=== PATIENT | female | born 1960 | race Caucasian/White ===

== ENCOUNTER → 2019-07-09 | Outpatient (CLI) | payer SELFPAY | PROVIDERS: Family Provider Family Medicine; Visit Provider Podiatrist Foot & Ankle Surgery | DX: Z46.89 Encounter for fitting and adjustment of other specified devices (principal); S86.319D Strain of muscle(s) and tendon(s) of peroneal muscle group at lower leg level, unspecified leg, subsequent encounter; X58.XXXD Exposure to other specified factors, subsequent encounter | CPT/HCPCS: L3030 ==

== ENCOUNTER 2020-05-15 07:43 | Outpatient (CLI) | payer OTHER, SELFPAY ==
--- NOTE | 2020-05-15 07:52 | CT_ITS ---
WS: [id number] CT scan of the chest with IV contrast, additional two-dimensional coronal and sagittal reconstruction was performed. 05/15/2020 Clinical Data: XIPHOID PAIN Comparison: None. DLP: 905.[address] scans at [facility] use at least one of these dose optimization techniques: automat ed exposure control; mA and/or kV adjustment per patient size (includes targeted exams where dose is matched to clinical indication); or iterative reconstruction. Findings: No nodules, masses or effusions are seen. No pneumonia or pneumothorax is seen. The heart size is nor mal with no pericardial effusion. The pulmonary arterial system and thoracic aorta demonstrate no abn ormalities or dilatations. There is no axillary or significant mediastinal adenopathy. The bones of t he thorax show only degenerative change of the thoracic vertebral bodies. Specifically the region of the xiphoid is unremarkable. The upper abdomen shows clips in the gallbladder fossa from a cholecystectomy. Otherwise, the upper a bdomen is unremarkable. CT/CT chest w con* [id number] Impression: Negative CT scan of the chest with IV contrast.
[2020-05-15] MEDS: iohexol 300 mg/mL 100 mL Btl IV (08:24)
== END 2020-05-15 07:44 | disposition home or self-care (01) ==
LOC: RADWPI 07:50
PROVIDERS: PCP Family Medicine; Visit Provider Registered Nurse
DX: R07.89 Other chest pain (principal); R29.898 Other symptoms and signs involving the musculoskeletal system
CPT/HCPCS: 71260; Q9967

== ENCOUNTER → 2020-10-13 16:03 | Outpatient (BNVA) | payer OTHER, SELFPAY | PROVIDERS: PCP Family Medicine; Referring Provider Dermatology; Visit Provider Podiatrist Foot & Ankle Surgery | DX: M25.571 Pain in right ankle and joints of right foot (principal) | CPT/HCPCS: 73610; 73630 ==

== ENCOUNTER 2020-11-26 12:54 | Outpatient (CLI) | payer OTHER, SELFPAY ==
--- NOTE | 2020-11-26 13:00 | MR_ITS ---
WS: [id number] MRI RIGHT ANKLE AND RIGHT FOOT NONCONTRAST TECHNIQUE: Sagittal proton density, sagittal STIR, axial proton density, axial T1, axial T2 fat sat, coronal proton density, coronal proton density fat sat, coronal T2 fat sat. CLINICAL INFORMATION: pain COMPARISON: None. FINDINGS: Mild degenerative arthritis at the ankle mortise. Hypertrophic spurring along the lateral malleolus. Mild degenerative subchondral cystic change along the undersurface of the lateral malleolus. Normal t alar dome. No evidence of avascular necrosis. Distal Achilles is normal in appearance. Split tear of the peroneal brevis with tenosynovitis along the peroneal tendon sheath. Marked tendinopathy involvin g the peroneal longus and brevis tendons with edema and increased signal abnormality. Palpable marker along the anterior lateral foot overlying the extensor digitorum longus which appears normal. Extensor compartment tendons appear normal. Normal flexor compartment tendons. Normal bone marrow signal in the talus and calcaneus. Normal talocalcaneal articulation. Normal camilo avicular articulation. Plantar aponeurosis appears normal. Tiny plantar calcaneal spur. Extensor comp artment tendons appear normal. Normal flexor compartment tendons. Metatarsals are normal in appearance. Mild degenerative arthritis IP joints. MR/MR ankle RT wo con* [id number] IMPRESSION: 1. Diffuse thickening and increased signal abnormality involving the peroneal tendons consistent with tendinosis involving the peroneal longus and brevis. Th is is at the level of the lateral malleolus and peroneal tubercle. Diffuse surr ounding edema and fluid consistent with tenosynovitis. 2. Peroneal brevis split tear. 3. Extensor and flexor compartment tendons are normal in appearance. 4. Distal Achilles appears normal. 5. Tiny plantar calcaneal spur. Normal plantar aponeurosis.
--- NOTE | 2020-11-26 13:45 | MR_ITS ---
WS: [id number] MRI RIGHT ANKLE AND RIGHT FOOT NONCONTRAST TECHNIQUE: Sagittal proton density, sagittal STIR, axial proton density, axial T1, axial T2 fat sat, coronal proton density, coronal proton density fat sat, coronal T2 fat sat. CLINICAL INFORMATION: pain COMPARISON: None. FINDINGS: Mild degenerative arthritis at the ankle mortise. Hypertrophic spurring along the lateral malleolus. Mild degenerative subchondral cystic change along the undersurface of the lateral malleolus. Normal t alar dome. No evidence of avascular necrosis. Distal Achilles is normal in appearance. Split tear of the peroneal brevis with tenosynovitis along the peroneal tendon sheath. Marked tendinopathy involvin g the peroneal longus and brevis tendons with edema and increased signal abnormality. Palpable marker along the anterior lateral foot overlying the extensor digitorum longus which appears normal. Extensor compartment tendons appear normal. Normal flexor compartment tendons. Normal bone marrow signal in the talus and calcaneus. Normal talocalcaneal articulation. Normal camilo avicular articulation. Plantar aponeurosis appears normal. Tiny plantar calcaneal spur. Extensor comp artment tendons appear normal. Normal flexor compartment tendons. Metatarsals are normal in appearance. Mild degenerative arthritis IP joints. MR/MR foot RT wo con* [id number] IMPRESSION: 1. Diffuse thickening and increased signal abnormality involving the peroneal tendons consistent with tendinosis involving the peroneal longus and brevis. Th is is at the level of the lateral malleolus and peroneal tubercle. Diffuse surr ounding edema and fluid consistent with tenosynovitis. 2. Peroneal brevis split tear. 3. Extensor and flexor compartment tendons are normal in appearance. 4. Distal Achilles appears normal. 5. Tiny plantar calcaneal spur. Normal plantar aponeurosis.
== END 2020-11-26 12:55 | disposition home or self-care (01) ==
LOC: RADSHAW 12:58
PROVIDERS: Visit Provider Podiatrist Foot & Ankle Surgery
DX: M76.70 Peroneal tendinitis, unspecified leg (principal); S86.311A Strain of muscle(s) and tendon(s) of peroneal muscle group at lower leg level, right leg, initial encounter; M77.31 Calcaneal spur, right foot; X58.XXXA Exposure to other specified factors, initial encounter
CPT/HCPCS: 73718; 73721

== ENCOUNTER → 2021-05-17 14:53 | Outpatient (BNVA) | payer OTHER, SELFPAY | PROVIDERS: Visit Provider Obstetrics & Gynecology | DX: N95.0 Postmenopausal bleeding (principal) | CPT/HCPCS: 88305 ==

== ENCOUNTER → 2021-06-07 14:03 | Outpatient (BNVA) | payer OTHER, SELFPAY | PROVIDERS: Visit Provider Obstetrics & Gynecology | DX: N93.9 Abnormal uterine and vaginal bleeding, unspecified (principal); N95.0 Postmenopausal bleeding | CPT/HCPCS: 84443; 85025 ==

== ENCOUNTER → 2021-10-27 13:56 | Outpatient (BNVA) | payer OTHER, SELFPAY | PROVIDERS: Visit Provider Podiatrist Foot & Ankle Surgery | DX: M67.88 Other specified disorders of synovium and tendon, other site (principal); M76.71 Peroneal tendinitis, right leg | CPT/HCPCS: 20550; 99213; 99214 ==

== ENCOUNTER 2021-10-27 15:25 | Outpatient (CLI) | payer OTHER, SELFPAY | END 2021-10-27 15:26 | disposition home or self-care (01) | LOC: SPT 15:39 | PROVIDERS: Visit Provider Podiatrist Foot & Ankle Surgery | DX: Z46.89 Encounter for fitting and adjustment of other specified devices (principal); M79.671 Pain in right foot | CPT/HCPCS: 97760; 99214; L4397 ==

== ENCOUNTER 2021-11-02 11:26 | Day surgery (SDC) | payer OTHER, SELFPAY ==
[2021-11-01 14:59] VITALS: BMI 30.9
[2021-11-02] VITALS (9 sets, daily range): BP systolic 114–179; BP diastolic 50–94; PULSE 66–80; RESP 12–18; TEMP 36.2–36.8; O2SAT 92–97
[2021-11-02] MEDS: sodium chloride 0.9% 1,000 ML 30 ML IV (11:54)
[2021-11-02] MEDS: ketorolac 30 mg/mL INJ IVP (11:59)
[2021-11-02] MEDS: scopolamine 1.5 Patch 1 PATCH TRANSDERMA (12:01)
--- NOTE | 2021-11-02 12:59 | ANES.PREANE2 ---
Pre-Anesthetic Assessment Height/Weight: Height 1.63 m Weight 81.647 kg Temp Pulse Resp BP Pulse Ox 97.7 F 80 16 179/94 97 11/02/21 11:46 11/02/21 11:46 11/02/21 11:46 11/02/21 11:46 11/02/21 11:46 Preop Diagnosis: pmb Operation Date: 11/02/21 13:10 Proposed Procedures p Hysteroscopy w/ Myosure 13683/90406/64406/post men bleed N95.0(Not Applicable) - Isidra Goss MD Familial anesthetic complications: Patient had 3 days of PONV in past Was Beta Robby taken within 24 hours: N/A Was Clonidine taken within 24 hours: N/A Last intake: Intake Last Liquid Date 11/01/21 Last Liquid Time 19:30 Last Solid Date 11/01/21 Last Solid Time 19:30 Social No alcohol and No tobacco Exam alert, oriented x 3, clear to auscultation bilaterally and regular rate & rhythm Airway Submandibular: within normal limits Cervical ROM: within normal limits Mallampati: Class I Dentition: full History/ROS No significant complaints Pulmonary None reported CV/HEM Anemia (iron deficiency anemia ) None reported PMB Hepatic None reported GI None reported Metabolic None reported Musc/skel None reported Neuropsych None reported Anesthetic Plan ASA status: 1 Anesthesia: Anesthesia Evaluation and General Other: We discussed risk and benefits of general anesthesia including PONV, sore throat (sometimes severe), corneal abrasion, positioning and peripheral nerve injuries, life threatening allergic reaction, post operative ICU admission requiring prolonged intubation, stroke, heart attack, , and rare incidences of recall. Patient consents to proceed with general anesthesia. Plan TIVA for PONV. Scopalamine pre op. Intra op antiemetics. Risk of > 500 ml blood loss (7ml/kg in children): No Medications/Allergies Home Medications Medication Instructions Recorded Confirmed Last Taken Type custom functional foot orthoses #1 ea 11/27/20 11/01/21 Unknown Rx left and right cholecalciferol (vitamin D3) 10 10 mcg PO DAILY 05/17/21 11/02/21 11/01/21 History mcg (400 unit) capsule zinc 50 mg tablet 50 mg PO DAILY 05/17/21 11/02/21 11/01/21 History night splint #1 ea 10/27/21 11/01/21 Unknown Rx sole supports #1 ea 10/27/21 11/01/21 Unknown Rx progesterone micronized 100 mg 100 mg PO QAM 11/01/21 11/02/21 11/01/21 History capsule vitamin K2 100 mcg capsule 600 mcg PO DAILY 11/01/21 11/02/21 11/01/21 History Allergies Allergy/AdvReac Type Severity Reaction Status Date / Time codeine Allergy Mild ADR-Vomitin Verified 11/02/21 11:37 g Current Medications Generic Name Dose Route Start Last Admin Trade Name Freq PRN Reason Stop Dose Admin Sodium Chloride 1,000 mls @ 30 mls/hr 11/02/21 11:45 11/02/21 11:54 Sodium Chloride 0.9% IV 11/03/21 11:44 30 mls/hr .Q24H [facility] Administration PFSH Anesthesia Surgical History History of foot surgery Hx of section Hx of cholecystectomy Hx of laparoscopy Hx of nasal septoplasty Family History Mother Diabetes Hypertension Stroke Father Diabetes Denies family history of Colon cancer Ovarian cancer Heart disease Breast cancer Uterine cancer Thyroid disease Social History Alcohol intake: current Alcohol intake frequency: few times a month Alcohol type: beer Data Anesthesia Cardiac Studies: No Data to Display
[2021-11-02 13:14] LABS: Basophils % 0.7 %; Eosinophils # 0.1 10^3/uL (0.0-0.8); Eosinophils % 1.5 %; Hemoglobin 9.3 g/dL (11.5-15.3); Lymphocytes # 2.2 10^3/uL (0.8-4.8); Lymphocytes % 40.3 %; Mean Corpuscular HGB Conc 32.1 g/dL (30.0-36.0); Mean Corpuscular Hemoglobin 26.2 pg (28.0-34.0); Mean Corpuscular Volume 81.7 fl (81-99); Monocytes # 0.7 10^3/uL (0.2-0.9); Neutrophils # 2.42 10^3/uL (1.8-7.7); Neutrophils % 44.3 %; Nucleated Red Blood Cells % 0 %; Platelet Count 278 10^3/cmm (130-400); Red Blood Count 3.55 10^6/uL (4.1-5.3); Red Cell Distribution Width 15.9 % (12.1-15.1); White Blood Count 5.5 10^3/uL (4.0-10.0)
--- NOTE | 2021-11-02 14:01 | W.PM.OPSUD ---
Surgery/Procedure H&P Update DATE OF PROCEDURE: November 02, 2021 DATE H&P PERFORMED: 11/01/21 H&P UPDATE INFORMATION: I have reviewed H&P completed within last 30 days, I have examined patient prior to procedure and No changes to prior documentation CHANGES TO PREVIOUS DOCUMENTATION: her hemoglobin is up to 9.3 from 6.8 PREOP DIAGNOSIS: pmb PLANNED PROCEDURE: Operation Date: 11/02/21 13:10 Proposed Procedures p Hysteroscopy w/ Myosure [id number]/67809/post men bleed N95.0(Not Applicable) - Isidra Goss MD
--- NOTE | 2021-11-02 15:02 | PM.OP ---
Operative Report Date of procedure: November 02, 2021 Pre-op diagnosis: Preop Diagnosis pmb Post-op diagnosis: same Post-op findings: 11 week sized uterus filled with blood clot Procedure done: hysteroscopy, dilation and curettage with myosure Specimens removed/disposition: endometrial curettings to pathology Surgeon: Isidra Goss Anesthesia: General Estimated blood loss (mL): 5 IV fluids (mL): 600 Complications: none Findings: 11 week sized uterus filled with blood clot Procedure: The patient was taken to the operating room where monitored anesthesia was administered and to be adequate. She was prepped and draped in the normal sterile fashion in the dorsal lithotomy position in [facility]. A weighted speculum was placed into the vagina and the anterior lip of the cervix grasped with a single-tooth tenaculum. The uterus was sounded to 11 cm. The cervix was dilated to 16 Icelandic. The hysteroscope was advanced into the endometrial cavity. There was a huge blood clot visualized. This was washed out with the hysteroscopy fluid. Three large masses were visualized on the posterior uterus. The MyoSure device was placed into the endometrial cavity and activated samples were taken of the 3 masses . Pictures were taken. All instruments were removed. The patient tolerated the procedure well. Sponge lap and needle counts were correct x3. She was taken to the recovery room in stable condition.
--- NOTE | 2021-11-02 15:09 | PM.DCS ---
Discharge Providers Date of Admission: 11/02/21 Date of Discharge: November 02, 2021 Attending Provider at Admission: Dr. Goss Attending Provider at Discharge: Isidra Goss MD Diagnoses at Discharge Discharge Diagnosis (1) PMB (postmenopausal bleeding): Status: Acute (2) Iron deficiency anemia: Status: Acute Reason for Visit Reason for Visit: post flavia bleeding N95.0/19219/80404/93357 Hospital Course Hospital Course The patient was admitted for surgery. She did well postoperatively and was ready for discharge Discharge Data Studies Completed and Pending Pending at discharge Category Date Time Status ES surgery / GI images Routine Exams 11/02/21 14:05 Taken Pathology: Surgical [PTH] Routine Pth 11/02/21 14:56 Ordered Laboratory Results WBC 5.5 10^3/uL (4.0-10.0) 11/02/21 11:56 RBC 3.55 10^6/uL (4.1-5.3) L 11/02/21 11:56 Hgb 9.3 g/dL (11.5-15.3) L 11/02/21 11:56 Hct 29.0 % (37.0-47.0) L 11/02/21 11:56 MCV 81.7 fl (81-99) 11/02/21 11:56 MCH 26.2 pg (28.0-34.0) L 11/02/21 11:56 MCHC 32.1 g/dL (30.0-36.0) 11/02/21 11:56 RDW 15.9 % (12.1-15.1) H 11/02/21 11:56 Plt Count 278 10^3/cmm (130-400) 11/02/21 11:56 MPV 11.0 fL (7.4-10.4) H 11/02/21 11:56 Neut % (Auto) 44.3 % 11/02/21 11:56 Lymph % (Auto) 40.3 % 11/02/21 11:56 Faulkner % (Auto) 13.0 % 11/02/21 11:56 Eos % (Auto) 1.5 % 11/02/21 11:56 Baso % (Auto) 0.7 % 11/02/21 11:56 Neut # (Auto) 2.42 10^3/uL (1.8-7.7) 11/02/21 11:56 Lymph # (Auto) 2.2 10^3/uL (0.8-4.8) 11/02/21 11:56 Faulkner # (Auto) 0.7 10^3/uL (0.2-0.9) 11/02/21 11:56 Eos # (Auto) 0.1 10^3/uL (0.0-0.8) 11/02/21 11:56 Baso # (Auto) 0.0 10^3/uL (0.0-0.1) 11/02/21 11:56 Nucleated RBC % (auto) 0 % 11/02/21 11:56 Nucleated RBCs # 0.0 /100WBC 11/02/21 11:56 Vitals Last Vital Signs Temp 97.7 F 11/02/21 11:46 Pulse 80 11/02/21 11:46 Resp 16 11/02/21 11:46 BP 179/94 11/02/21 11:46 Pulse Ox 97 11/02/21 11:46 Discharge Plan Discharge Patient Disposition: Home Condition: Stable Prescriptions: Continued cholecalciferol (vitamin D3) 10 mcg (400 unit) capsule 10 mcg PO DAILY 0RF zinc 50 mg tablet 50 mg PO DAILY 0RF (DME) custom functional foot orthoses left and right See Rx Instructions .Route .MEDSUPPLY Qty: 1 0RF Rx Instructions: Deep heel cup, lateral flang, lateral rearfoot post. JG&P. progesterone micronized 100 mg capsule 100 mg PO QAM 0RF Rx Instructions: off 7 days; repeat cycle (DME) night splint See Rx Instructions .Route .MEDSUPPLY Qty: 1 0RF Rx Instructions: As directed (DME) sole supports See Rx Instructions .Route .MEDSUPPLY Qty: 1 0RF Rx Instructions: As directed vitamin K2 100 mcg Capsule 600 mcg PO DAILY 0RF Discharge Orders: Discharge Order (Routine); Ordered 11/02/21 Ordered By: Isidra Goss Discharge Attestations Time Spent in Discharge Care*: less than 30 min Quality Metrics Clinical Quality Measures [ No reported AMI, CVA or VTE this stay] Coding Level of Care Code Acute Chg FW DC note Diagnoses PMB (postmenopausal bleeding) N95.0 Iron deficiency anemia D50.9
--- NOTE | 2021-11-02 17:48 | ANE.PACU2 ---
Inpatient post-anesthesia follow up: Airway intact: Yes Vital signs: Temperature 98.2 F Pulse Rate 69 Respiratory Rate 18 Blood Pressure 118/62 Pulse Oximetry 94 Oxygen Delivery Me thod Room Air Oxygen Flow Rate Fraction of Inspir ed Oxygen Hydration adequate: Yes Nausea and vomiting: No Pain level: 1 Mental status: Baseline
== END 2021-11-02 16:10 | disposition home or self-care (01) ==
PROVIDERS: Visit Provider Obstetrics & Gynecology
PROC: 0UDB8ZZ Extraction of Endometrium, Via Natural or Artificial Opening Endoscopic (ICD-10-PCS; CPT 58558; principal; 2021-11-02 13:00)
DX: N95.0 Postmenopausal bleeding (principal); D50.9 Iron deficiency anemia, unspecified
CPT/HCPCS: 58558; 36415; 85025; 88305; J0690; J1100; J1200; J1885; J2405; J2704; J3010; J7030

== ENCOUNTER → 2022-01-19 10:43 | Outpatient (BNVA) | payer OTHER, SELFPAY | PROVIDERS: Visit Provider Podiatrist Foot & Ankle Surgery | DX: M79.671 Pain in right foot (principal); M67.88 Other specified disorders of synovium and tendon, other site; M76.71 Peroneal tendinitis, right leg; M92.61 Juvenile osteochondrosis of tarsus, right ankle | CPT/HCPCS: 99214 ==

== ENCOUNTER → 2022-03-21 10:12 | Outpatient (BNVA) | payer OTHER, SELFPAY | PROVIDERS: Visit Provider Podiatrist Foot & Ankle Surgery | DX: M67.88 Other specified disorders of synovium and tendon, other site (principal); M76.71 Peroneal tendinitis, right leg; M92.61 Juvenile osteochondrosis of tarsus, right ankle | CPT/HCPCS: 99214 ==

== ENCOUNTER 2022-04-26 08:42 | Outpatient (CLI) | payer OTHER, SELFPAY ==
--- NOTE | 2022-04-26 08:45 | MR_ITS ---
WS: [id number] MRI RIGHT ANKLE without CONTRAST. COMPARISON: Prior MRI 11/26/2020 Multiplanar, multisequence imaging is performed without contrast. No significant thickening or enlargement of the Achilles tendon. New increased T2 signal in the inser tion site of the Achilles tendon. Consistent with a very tiny insertional site tear. No retraction. M inimal retrocalcaneal bursitis. No fluid surrounding the distal Achilles tendinopathy or peritendinit is. Marrow edema in the distal calcaneus at the Achilles insertion site. Increased T2 signal fluid in the peroneal tendon sheath. Again noted is a split tear of the peroneal brevis tendon near the peroneal tubercle. There is similar in appearance to the prior MRI. No improv ement. Increase fluid in the tendon sheath appears slightly increased. There is no edema within the p eroneal tubercle. Small amount of subchondral cystic changes noted within the distal fibula. Extensor and flexor tendon sheath are otherwise negative. Small calcaneal spur. No evidence for acute plantar fasciitis. MR/MR ankle RT wo con* [id number] IMPRESSION: 1. Again noted is tenosynovitis surrounding the peroneal tendon sheath. Fluid within the peroneal tendon sheath appears slightly progressed as compared to . Unchanged split tear of the peroneus brevis near the peroneal tubercle . 2. New small insertion site tear Achilles tendon with a small amount of marrow edema in the adjacent posterior calcaneus. No full-thickness tear or retractio n. 3. Minimal retrocalcaneal bursitis.
== END 2022-04-26 08:43 | disposition home or self-care (01) ==
LOC: RAD 08:44
PROVIDERS: PCP Nurse Practitioner; Visit Provider Podiatrist Foot & Ankle Surgery
DX: M67.88 Other specified disorders of synovium and tendon, other site (principal); M71.571 Other bursitis, not elsewhere classified, right ankle and foot; S93.491A Sprain of other ligament of right ankle, initial encounter; S86.011A Strain of right Achilles tendon, initial encounter; X58.XXXA Exposure to other specified factors, initial encounter
CPT/HCPCS: 73721

== ENCOUNTER → 2022-05-17 14:45 | Outpatient (BNVA) | payer OTHER, SELFPAY | PROVIDERS: PCP Nurse Practitioner; Visit Provider Podiatrist Foot & Ankle Surgery | DX: M67.88 Other specified disorders of synovium and tendon, other site (principal); M92.61 Juvenile osteochondrosis of tarsus, right ankle; M76.71 Peroneal tendinitis, right leg | CPT/HCPCS: 20550; 99214 ==

== ENCOUNTER 2022-08-05 08:00 | Day surgery (SDC) | payer OTHER, SELFPAY ==
[2022-08-04 09:53] VITALS: BMI 30.9
[2022-08-05 08:14] VITALS: BP 173/82; PULSE 72; RESP 16; TEMP 36.4; O2SAT 96
[2022-08-05] MEDS: sodium chloride 0.9% 1,000 ML 30 ML IV (08:25)
[2022-08-05] MEDS: gabapentin 300 mg Capsule PO (08:26)
[2022-08-05] MEDS: scopolamine 1.5 Patch 1 PATCH TRANSDERMA (08:27)
--- NOTE | 2022-08-05 08:45 | ANES.PREANE2 ---
Pre-Anesthetic Assessment Height/Weight: Height 1.6 m Weight 79.379 kg Temp Pulse Resp BP Pulse Ox O2 Del Method 97.5 F L 72 16 173/82 96 08/05/22 08:14 08/05/22 08:14 08/05/22 08:14 08/05/22 08:14 08/05/22 08:14 08/05/22 08:14 Preop Diagnosis: Peroneal and achilles tear, haglaunds deformity all right. Operation Date: 08/05/22 09:40 Proposed Procedures p Peroneal tendon repair, Achilles tendon repair and calcaneal exostectomy all right lower extremity 66293,38246, 04053,M92.61,S86.311,M92.61(Right) - Esteban Sewell DPM s Exostectomy(Right) - Esteban Sewell DPM Familial anesthetic complications: None Was Beta Robby taken within 24 hours: N/A Was Clonidine taken within 24 hours: N/A Last intake: Intake Last Liquid Date 08/04/22 Last Liquid Time 00:00 Last Solid Date 08/04/22 Last Solid Time 17:30 Social No alcohol and No tobacco Exam alert, oriented x 3, clear to auscultation bilaterally and regular rate & rhythm Airway Dentition: false CV/HEM Hypertension Metabolic Diabetes Mellitus, Hyperlipidemia and Thyroid Disease Anesthetic Plan ASA status: 3 Anesthesia: General Risk of > 500 ml blood loss (7ml/kg in children): No Medications/Allergies Home Medications Medication Instructions Recorded Confirmed Last Taken Type custom functional foot orthoses #1 ea 11/27/20 05/17/22 Unknown Rx left and right night splint #1 ea 10/27/21 05/17/22 Unknown Rx sole supports #1 ea 10/27/21 05/17/22 Unknown Rx Low Profile Orthotics- Graphite #1 ea 01/20/22 05/17/22 Unknown Rx Open heel counter or low heel #1 laurie 02/21/22 05/17/22 Unknown Rx counter orthopedic shoes Allergies Allergy/AdvReac Type Severity Reaction Status Date / Time codeine Allergy Mild ADR-Vomitin Verified 05/17/22 14:57 g Current Medications Generic Name Dose Route Start Last Admin Trade Name Freq PRN Reason Stop Dose Admin Sodium Chloride 1,000 mls @ 30 mls/hr 08/05/22 08:15 08/05/22 08:25 Sodium Chloride 0.9% IV 08/06/22 08:14 30 mls/hr .Q24H [facility] Administration PFSH Anesthesia Surgical History History of foot surgery Hx of section Hx of cholecystectomy Hx of laparoscopy Hx of nasal septoplasty Family History Mother Diabetes Hypertension Stroke Father Diabetes Denies family history of Colon cancer Ovarian cancer Heart disease Breast cancer Uterine cancer Thyroid disease Social History Smoking and tobacco status: never smoked Alcohol intake: current Alcohol intake frequency: few times a month Alcohol type: beer Data Anesthesia Cardiac Studies: No Data to Display
--- NOTE | 2022-08-05 08:47 | ANES.PREANE2 ---
Pre-Anesthetic Assessment Height/Weight: Height 1.6 m Weight 79.379 kg Temp Pulse Resp BP Pulse Ox O2 Del Method 97.5 F L 72 16 173/82 96 08/05/22 08:14 08/05/22 08:14 08/05/22 08:14 08/05/22 08:14 08/05/22 08:14 08/05/22 08:14 Preop Diagnosis: Peroneal and achilles tear, haglaunds deformity all right. Operation Date: 08/05/22 09:40 Proposed Procedures p Peroneal tendon repair, Achilles tendon repair and calcaneal exostectomy all right lower extremity 73644,08377, 18180,M92.61,S86.311,M92.61(Right) - Esteban Sewell DPM s Exostectomy(Right) - Esteban Sewell DPM Familial anesthetic complications: PONV Was Beta Robby taken within 24 hours: N/A Was Clonidine taken within 24 hours: N/A Last intake: Intake Last Liquid Date 08/04/22 Last Liquid Time 00:00 Last Solid Date 08/04/22 Last Solid Time 17:30 Social No alcohol and No tobacco Exam alert, oriented x 3, clear to auscultation bilaterally and regular rate & rhythm Airway Mallampati: Class I Dentition: full CV/HEM Anemia Anesthetic Plan ASA status: 2 Anesthesia: General Risk of > 500 ml blood loss (7ml/kg in children): No Medications/Allergies Home Medications Medication Instructions Recorded Confirmed Last Taken Type custom functional foot orthoses #1 ea 11/27/20 05/17/22 Unknown Rx left and right night splint #1 ea 10/27/21 05/17/22 Unknown Rx sole supports #1 ea 10/27/21 05/17/22 Unknown Rx Low Profile Orthotics- Graphite #1 ea 01/20/22 05/17/22 Unknown Rx Open heel counter or low heel #1 laurie 02/21/22 05/17/22 Unknown Rx counter orthopedic shoes Allergies Allergy/AdvReac Type Severity Reaction Status Date / Time codeine Allergy Mild ADR-Vomitin Verified 05/17/22 14:57 g Current Medications Generic Name Dose Route Start Last Admin Trade Name Freq PRN Reason Stop Dose Admin Sodium Chloride 1,000 mls @ 30 mls/hr 08/05/22 08:15 08/05/22 08:25 Sodium Chloride 0.9% IV 08/06/22 08:14 30 mls/hr .Q24H [facility] Administration PFSH Anesthesia Surgical History History of foot surgery Hx of section Hx of cholecystectomy Hx of laparoscopy Hx of nasal septoplasty Family History Mother Diabetes Hypertension Stroke Father Diabetes Denies family history of Colon cancer Ovarian cancer Heart disease Breast cancer Uterine cancer Thyroid disease Social History Smoking and tobacco status: never smoked Alcohol intake: current Alcohol intake frequency: few times a month Alcohol type: beer Data Anesthesia Cardiac Studies: No Data to Display
--- NOTE | 2022-08-05 10:25 | W.PM.OPSUD ---
Surgery/Procedure H&P Update DATE OF PROCEDURE: August 05, 2022 DATE H&P PERFORMED: 08/05/22 CHANGES TO PREVIOUS DOCUMENTATION: none PREOP DIAGNOSIS: Peroneal and achilles tear, haglaunds deformity all right. PLANNED PROCEDURE: Operation Date: 08/05/22 09:40 Proposed Procedures p Peroneal tendon repair, Achilles tendon repair and calcaneal exostectomy all right lower extremity 72503,05354, 33363,M92.61,S86.311,M92.61(Right) - Esteban Sewell DPM s Exostectomy(Right) - Esteban Sewell DPM
--- NOTE | 2022-08-05 10:25 | PM.OPSURHP ---
Providers/Chief Complaint Primary Care Provider: MARVIN Cardenas Chief Complaint: surgery History of Present Illness Vandana Rivas is a 62 year old female presenting to the clinic for follow of her right Achilles tendon and go over MRI Results. Cortisone injection right peroneal tendons administered on 10/27/2021 and #2 Cortisone Injection on 01/19/22. She locates the pain at the Achilles Tendon. Pain is most serve after periods of rest or after being on her feet for long periods of time. She rates the pain a 6/10.? Has pain at the heel and shoots up? her leg. Patient had a ball that developed at the back of her right knee with her daily stretches and she had to stop the daily stretching due to the pain that shoots up her right leg.? Review of Systems General: Reports: 10 or more systems reviewed and unremarkable except in HPI and below Const: Denies: fever(s) or chills Eyes: Denies: change in vision Card: Denies: chest pain or palpitations Resp: Denies: dyspnea or productive cough GI: Denies: abdominal pain, nausea or vomiting : Denies: flank pain Musc: Reports: extremity pain Skin/Breast: Denies: rash Neuro: Denies: numbness in extremities, sensory changes or frequent falls Psych: Denies: suicidal ideation Sang/Lymph: Denies: easy bruising Medications/Allergies Home Medications Medication Instructions Recorded Confirmed Last Taken Type custom functional foot orthoses #1 ea 11/27/20 05/17/22 Unknown Rx left and right night splint #1 ea 10/27/21 05/17/22 Unknown Rx sole supports #1 ea 10/27/21 05/17/22 Unknown Rx Low Profile Orthotics- Graphite #1 ea 01/20/22 05/17/22 Unknown Rx Open heel counter or low heel #1 ea 02/21/22 05/17/22 Unknown Rx counter orthopedic shoes Allergies Allergy/AdvReac Type Severity Reaction Status Date / Time codeine Allergy Mild ADR-Vomitin Verified 05/17/22 14:57 g PFSH PFSH: Surgical History History of foot surgery Hx of section Hx of cholecystectomy Hx of laparoscopy Hx of nasal septoplasty Family History Mother Diabetes Hypertension Stroke Father Diabetes Denies family history of Colon cancer Ovarian cancer Heart disease Breast cancer Uterine cancer Thyroid disease Social History Smoking and tobacco status: never smoked Alcohol intake: current Alcohol intake frequency: few times a month Alcohol type: beer Vital Signs Vitals Signs: Last Vital Signs Temp 97.5 F L 08/05/22 08:14 Pulse 72 08/05/22 08:14 Resp 16 08/05/22 08:14 BP 173/82 08/05/22 08:14 Pulse Ox 96 08/05/22 08:14 O2 Del Method 08/05/22 08:14 Weight: Weight last 48 hrs Weight 175 lb Physical Exam Narrative: EXAM NARRATIVE: Patient is alert and oriented ?3 and in no acute distress.? The following is a focused bilateral lower extremity exam. VASCULAR: Dorsalis pedis and posterior tibial arteries palpable +2.? Capillary refill time less than 3 seconds to the distal hallux bilaterally. Calf is supple and nontender proximally and distally.? No pedal edema appreciated.? Pedal hair growth present. NEUROLOGICAL: Epicritic and protopathic sensations grossly intact to the lower extremities.? +2 Achilles tendon reflex noted bilaterally.? Negative Tinel sign upon percussion of lower extremity nerves. DERMATOLOGICAL: Lower extremity skin is well-hydrated, normal texture and turgor.? There are no open sores or lesions noted to the lower extremities.? No erythema or ecchymosis present to the bilateral legs and feet. MUSCULOSKELETAL: Pain to palpation along the course of the peroneal tendons right ankle.? Pain with resistance against eversion of the right ankle along the course of the peroneal tendons.? No subluxation appreciated on exam.? Muscle strength 5 out of 5 in all 3 cardinal planes to the right foot and ankle.? Tenderness noted assertion of right Achilles tendon.? No palpable dell at the watershed, no pain at the right Achilles watershed zone.? Ankle joint dorsiflexion 5 degrees beyond neutral to the right. Osseous prominence most painful and most palpable at the posterior superior lateral aspect of the right calcaneal tuberosity. CARDIOVASCULAR: S1, S2, normal rate, normal rhythm. Dorsalis pedis and posterior tibial arteries palpable. LUNGS: Clear to auscltation, no use of acessory muscles, no crackles or wheezes. A&P Assessment and plan (1) Peroneal tendon tear: Qualifiers: Encounter type: subsequent encounter Laterality: left Qualified Code(s): S86.312D - Strain of muscle(s) and tendon(s) of peroneal muscle group at lower leg level, left leg, subsequent encounter (2) Achilles tendinosis of right lower extremity: (3) Peroneal tendinitis, right leg: (4) Right ankle pain: (5) Helio's deformity of right heel: Plan Patient examined and evaluated, findings and treatment options were discussed with patient at length.? Patient is requesting a cortisone injection to the right peroneal tendons with hopes of temporary relief.? Ultimately she is wishing to discuss surgical intervention.? States that the pain at her right peroneal tendons and Achilles is debilitating, this prevents her from enjoying everyday activities, has pain on a daily basis.? Reviewed MRI findings shows tenosynovitis of the peroneal tendons and split longitudinal tear of the peroneal brevis at the right lower extremity this is at the level of the peroneal tubercle.? There is an insertional tear of the Achilles tendon with a small amount of marrow edema.? There is retrocalcaneal bursitis also present.? Discussed surgical approach and recovery times both risks and benefits.? I reviewed at length with the patient, the risks, potential complications, benefits, alternatives, expectations, and typical outcomes associated with the surgery. The risks and potential complications were explained in detail, including but not limited to infection, wound dehiscence or soft tissue complications, bleeding and hematoma, chronic edema, neuritis or nerve damage producing numbness or chronic pain, CRPS, failure to relieve pain or worsening pain, thick / painful / unsightly scar, limited motion / stiffness, malposition, delayed union, malunion, or nonunion, fracture, reaction to implants, anesthetic complications, venous thromboembolism, and deformity recurrence.? I discussed the notion of no regrets with the patient as it pertains to complications and outcomes. Risk for Achilles rupture, risk for subluxation of peroneal tendons, risk for elongation of Achilles tendon and calcaneal gait. The patient seemed to understand the nature of the proposed care and required convalescence. They asked appropriate questions, answered to their satisfaction. They are aware no guarantees can be made as to a satisfactory outcome and they understand there may be other possible unforeseen complications or outcomes not listed here that will be treated accordingly if they arise. There were no written or implied guarantees given to the patient. They gave informed consent to proceed. Plan on Helio's resection, primary Achilles repair and peroneal tendon repair all right lower extremity. Right Helio's resection, primary Achilles repair and peroneal tendon repair. Peroneal tendon repair to be done under general anesthetic in supine position on the gurney Helio's resection and Achilles repair to be positioned prone on the OR bed Planning on 2.5 hours. Would appreciate popliteal block right lower extremity per anesthesia preoperatively. Coding Level of Care Code Acute Code for Chg Fwd Diagnoses Peroneal tendon tear S86.312D Encounter type: subsequent encounter Laterality: left Achilles tendinosis of right lower extremity M67.88 Peroneal tendinitis, right leg M76.71 Right ankle pain M25.571 Helio's deformity of right heel M92.61
[2022-08-05] MEDS: ceFAZolin 2,000 MG in sodium chloride 0.9% (plus) 50 ML 100 MG IV (10:44)
--- NOTE | 2022-08-05 10:46 | ANES.PROC ---
Anesthesia Procedures Procedure/Date: 08/05/22 Nerve Block ^: Nerve Block 1: Main Anesthesia: general anesthesia Time Out Performed: Yes Consent: requested by attending/covering physician, from patient, risks and benefits reviewed and patient agrees to proceed Nerve block location: popliteal (R) Anesthesia monitors applied: pulse oximetry, EKG, BP cuff and oxygen Nerve block position: supine Anesthetic Used: ropivicaine 0.5% (30 ml) and with decadron (4 mg) Ultrasound used to: recognize landmarks Nerve Stimulator Used?: No Interscalene/Femoral BLK: 4 stimuplex 21 g needle used for position and inplane approach, visualize local anesthetic spread and no vascular puncture identified Injection: neg aspiration of heme Patient Tolerated Procedure: well Complications: none
[2022-08-05 12:30] VITALS: BP 152/75; PULSE 92; RESP 17; TEMP 36.1; O2SAT 93
[2022-08-05 12:35] VITALS: BP 140/69; PULSE 95; RESP 19; O2SAT 92
[2022-08-05 12:40] VITALS: BP 143/81; PULSE 91; RESP 20; O2SAT 93
[2022-08-05 12:50] VITALS: BP 139/80; PULSE 90; RESP 18; O2SAT 94
--- NOTE | 2022-08-05 12:52 | P.OP_ITS ---
Operative Report Date of procedure: August 05, 2022 Pre-op diagnosis: Right peroneal brevis tendon tear. Right Achilles tendon tear. Right Helio's deformity. Post-op diagnosis: Right peroneal brevis tendon tear. Right Achilles tendon tear. Right Helio's deformity. Post-op findings: Split longitudinal tear of the right peroneal brevis near the level of the peroneal tubercle. Longitudinal tearing, mucoid degeneration and thickening of the right Achilles tendon at its insertion. Right Helio's deformity. Procedure done: Peroneal tendon repair, Achilles tendon repair and calcaneal exostectomy all right lower extremity. CPT codes 47203,47352, 40733 Implants: Arthrex Achilles speed bridge, 4-0 Monocryl, 3-0 Vicryl, 4-0 Vicryl, 4-0 nylon Surgeon: Esteban Sewell D.P.M. Heavy Truck Mechanic: Angely Evans Estimated blood loss: 5 62 IV fluids: None Urine output: None Complications: None Findings: Split longitudinal tear of the right peroneal brevis near the level of the peroneal tubercle. Longitudinal tearing, mucoid degeneration and thickening of the right Achilles tendon at its insertion. Right Helio's deformity. Brief History: Patient examined and evaluated, findings and treatment options were discussed with patient at length.? Patient is requesting a cortisone injection to the right peroneal tendons with hopes of temporary relief.? Ultimately she is wishing to discuss surgical intervention.? States that the pain at her right peroneal tendons and Achilles is debilitating, this prevents her from enjoying everyday activities, has pain on a daily basis.? Reviewed MRI findings shows tenosynovitis of the peroneal tendons and split longitudinal tear of the peroneal brevis at the right lower extremity this is at the level of the peroneal tubercle.? There is an insertional tear of the Achilles tendon with a small amount of marrow edema.? There is retrocalcaneal bursitis also present.? Discussed surgical approach and recovery times both risks and benefits.? I reviewed at length with the patient, the risks, potential complications, benefits, alternatives, expectations, and typical outcomes associated with the surgery. The risks and potential complications were explained in detail, including but not limited to infection, wound dehiscence or soft tissue complications, bleeding and hematoma, chronic edema, neuritis or nerve damage producing numbness or chronic pain, CRPS, failure to relieve pain or worsening pain, thick / painful / unsightly scar, limited motion / stiffness, malposition, delayed union, malunion, or nonunion, fracture, reaction to implants, anesthetic complications, venous thromboembolism, and deformity recurrence.? I discussed the notion of no regrets with the patient as it pertains to complications and outcomes.? Risk for Achilles rupture, risk for subluxation of peroneal tendons, risk for elongation of Achilles tendon and calcaneal gait.? The patient seemed to understand the nature of the proposed care and required convalescence. They asked appropriate questions, answered to their satisfaction. They are aware no guarantees can be made as to a satisfactory outcome and they understand there may be other possible unforeseen complications or outcomes not listed here that will be treated accordingly if they arise. There were no written or implied guarantees given to the patient. They gave informed consent to proceed. Plan on Helio's resection, primary Achilles repair and peroneal tendon repair all right lower extremity. Procedure: Under mild sedation the patient was brought to the operating room and remained on the gurney in supine position. A timeout was performed. Anesthesia was then administered by the anesthesia service. Of note popliteal block to the right lower extremity was performed per anesthesia preoperatively in preop holding. Well-padded pneumatic tourniquet was applied to the right thigh. The right lower extremity was then scrubbed, prepped and draped utilizing normal aseptic technique. Right lower extremity was exanguinated with an Esmarch bandage and the tourniquet was then inflated to 250 mmHg. Attention was directed to the right lateral ankle and foot were along the course of the peroneal tendons just posterior and superior to the lateral malleolus distally coursing in a curvilinear fashion or L-shaped incision directly along the course of the peroneal tendons near the base of the fifth metatarsal was performed through skin with a #15 blade. Dissection carried down's carefully both sharp and blunt dissection utilized down to the tendon sheath of the peroneal tendons. Peroneal brevis and longus tendon sheaths were incised linearly in a protected fashion utilizing Metzenbaum and a [place], split longitudinal tear of the peroneal brevis was appreciated. Peroneal longus was intact. Hemorrhagic synovitis at the peroneal brevis tendon sheath was sharply excised and passed from the operative field. Split longitudinal tear was debrided sharply and the right peroneal brevis tendon was tubularized and repaired longitudinally with 4-0 Monocryl. The incision was then flushed with copious amounts of sterile skin solution. Synovial sheath of peroneal longus and brevis as well as peroneal retinaculum were then reapproximated utilizing 3- 0 Vicryl. Subcutaneous tissue reapproximated utilizing 4-0 Vicryl and skin with 4-0 nylon. Infiltrated the incision site in a grid like fashion subcutaneously with 10 cc of Exparel. The incision was dressed with laps to hold compression and sterile Coban. And the tourniquet was then deflated. Sterile field was then taken down and the patient was placed prone onto the operating room table with appropriate padding. The right lower extremity was then scrubbed, prepped and draped utilizing normal aseptic technique and exanguinated utilizing Esmarch bandage following by reinflation of the right thigh tourniquet to 250 mmHg. Attention was directed to the posterior right Achilles where a linear longitudinal incision was made approximately 7 cm in length at distal Achilles coursing to its insertion at posterior calcaneus.? Dissection was carried down sharply down to the peritenon which was incised longitudinally exposing the Achilles tendon.? There was degeneration consistent with mucoid degeneration just proximal to insertion more prominent laterally with approximately 1.5 cm longitudinal tear.? This was sharply debrided.? The Achilles tendon was sharply excised and reflected off the posterior calcaneus.? A fluid-filled bursa just anterior this was sharply excised once visualized with clean healthy margin.? Achilles tendon was debrided of all devitalized tissue down to healthy tendon.? Sagittal saw utilized to resect the dorsal osseous prominence at the calcaneal tubercle all rough edges were smoothed with a power rasp.? Incision site was flushed with copious amounts of sterile saline solution.? Achilles tendon was reattached to healthy bone utilizing Arthrex speed bridge with excellent tendon to cancellous bone interface, tendon was pulled out to length and noted to have a stable fixation.? Excess fiber tape was cut total of 4 anchors were utilized these were 4.75 anchors utilizing manufacture recommendation of drill, tap and i nsertion.? Further irrigation with saline solution was performed.? Peritenon was then reapproximated utilizing 3-0 Vicryl.? Subcutaneous tissue closed utilizing 4-0 Vicryl and skin closed utilizing 4-0 nylon.? Jumpstart applied at the incision provided by Arthrex.? Followed by sterile 4 x 4's, Kerlix and well- padded multilayer compressive posterior splint with the ankle in equinus position.? Tourniquet was deflated and a prompt hyperemic response was noted to the distal digits of the right foot.? Patient tolerated the procedure well and was transferred to the PACU with vital signs stable and vascular status intact.? Following a period of postoperative monitoring she will be discharged home is to remain strict nonweightbearing she does have a knee scooter she was prescribed Percocet was brought also provided my cell phone number is to contact me with any postoperative questions or concerns over the weekend.
--- NOTE | 2022-08-05 13:24 | ANE.PACU2 ---
Inpatient post-anesthesia follow up: Airway intact: Yes Vital signs: Temperature 97.0 F Pulse Rate 90 Respiratory Rate 18 Blood Pressure 139/80 Pulse Oximetry 94 Oxygen Delivery Me thod Room Air Oxygen Flow Rate Fraction of Inspir ed Oxygen Hydration adequate: Yes Nausea and vomiting: No Pain level: 1 Mental status: Baseline
[2022-08-05] MEDS: ondansetron 2 mg/ML SDV 2 mL 4 MG IVP (13:30)
== END 2022-08-05 13:55 | disposition home or self-care (01) ==
PROVIDERS: PCP Nurse Practitioner; Visit Provider Podiatrist Foot & Ankle Surgery
PROC: (CPT 27650; principal; 2022-08-05 09:40)
PROC: (CPT 28288; 2022-08-05 09:40)
PROC: (CPT 27650; 2022-08-05 09:40)
DX: S86.312A Strain of muscle(s) and tendon(s) of peroneal muscle group at lower leg level, left leg, initial encounter (principal); X58.XXXA Exposure to other specified factors, initial encounter; M76.71 Peroneal tendinitis, right leg; M25.571 Pain in right ankle and joints of right foot; M92.61 Juvenile osteochondrosis of tarsus, right ankle
CPT/HCPCS: 27650; 27659; 28120; 73650; 76000; C1713; C9290; J0690; J1100; J2405; J2704; J2795; J3010; J3490; J7030

== ENCOUNTER → 2022-08-12 12:47 | Outpatient (BNVA) | payer OTHER, SELFPAY | PROVIDERS: PCP Nurse Practitioner; Visit Provider Podiatrist Foot & Ankle Surgery | DX: Z98.890 Other specified postprocedural states (principal) | CPT/HCPCS: 99024 ==

== ENCOUNTER → 2022-08-18 11:26 | Outpatient (BNVA) | payer OTHER, SELFPAY | PROVIDERS: PCP Nurse Practitioner; Visit Provider Podiatrist Foot & Ankle Surgery | DX: Z98.890 Other specified postprocedural states (principal) | CPT/HCPCS: 73630; 99024 ==

== ENCOUNTER 2022-09-01 14:24 | Outpatient (CLI) | payer OTHER, SELFPAY | END 2022-09-01 14:25 | disposition home or self-care (01) | LOC: SPT 14:24 | PROVIDERS: PCP Nurse Practitioner; Visit Provider Podiatrist Foot & Ankle Surgery | DX: Z46.89 Encounter for fitting and adjustment of other specified devices (principal); M92.61 Juvenile osteochondrosis of tarsus, right ankle; Z98.890 Other specified postprocedural states | CPT/HCPCS: 97760; 99024; L4361 ==

== ENCOUNTER → 2022-09-15 11:21 | Outpatient (BNVA) | payer OTHER, SELFPAY | PROVIDERS: PCP Nurse Practitioner; Visit Provider Podiatrist Foot & Ankle Surgery | DX: Z98.890 Other specified postprocedural states (principal) | CPT/HCPCS: 99024 ==

== ENCOUNTER → 2022-10-06 11:18 | Outpatient (BNVA) | payer OTHER, SELFPAY | PROVIDERS: PCP Nurse Practitioner; Visit Provider Podiatrist Foot & Ankle Surgery | DX: Z98.890 Other specified postprocedural states (principal) | CPT/HCPCS: 99024 ==

== ENCOUNTER → 2022-11-03 14:09 | Outpatient (BNVA) | payer OTHER, SELFPAY | PROVIDERS: PCP Nurse Practitioner; Visit Provider Podiatrist Foot & Ankle Surgery | DX: Z98.890 Other specified postprocedural states (principal) | CPT/HCPCS: 73630; 99024 ==

== ENCOUNTER → 2023-01-05 08:07 | Outpatient (BNVA) | payer OTHER, SELFPAY | PROVIDERS: Visit Provider Podiatrist Foot & Ankle Surgery | DX: M65.28 Calcific tendinitis, other site (principal) | CPT/HCPCS: 99213 ==

== ENCOUNTER 2023-01-17 06:00 | Outpatient (RCR) | payer OTHER, SELFPAY | END 2023-02-06 23:59 | disposition home or self-care (01) | LOC: MPT 06:00 | PROVIDERS: Visit Provider Podiatrist Foot & Ankle Surgery | DX: M25.571 Pain in right ankle and joints of right foot (principal); M25.572 Pain in left ankle and joints of left foot | CPT/HCPCS: 97110; 97140; 97162 ==

== ENCOUNTER 2023-01-30 08:08 | Outpatient (RCR) | payer OTHER, SELFPAY | END 2023-02-06 23:59 | disposition home or self-care (01) | LOC: SPT 08:08 | PROVIDERS: Visit Provider Nurse Practitioner | DX: N39.3 Stress incontinence (female) (male) (principal); N94.10 Unspecified dyspareunia | CPT/HCPCS: 97161 ==

== ENCOUNTER 2023-02-06 07:57 | Outpatient (CLI) | payer OTHER, SELFPAY ==
--- NOTE | 2023-02-06 08:10 | US_ITS ---
WS: [id number] RIGHT UPPER QUADRANT ULTRASOUND HISTORY: RUQ FOR ELEVATED LIVER ENZYMES COMPARISON: None available. Liver: 13.9 cm in length. Normal size liver and echogenicity. No bile duct dilatation or mass. Portal Vein: Normal hepatopetal flow with monophasic waveform. Gallbladder: Status post cholecystectomy. CBD: 0.3 cm Pancreas: Normal size and echogenicity. Right kidney: 10.9 cm in length. Normal size and echogenicity. No hydronephrosis or mass. Aorta and IVC: Unremarkable abdominal aorta and IVC. No ascites. US/US abdomen limited [id number] IMPRESSION: 1. Prior cholecystectomy. 2. Otherwise unremarkable RIGHT upper quadrant ultrasound.
== END 2023-02-06 07:58 | disposition home or self-care (01) ==
LOC: RAD 07:59
PROVIDERS: PCP Nurse Practitioner; Visit Provider Nurse Practitioner
DX: R74.8 Abnormal levels of other serum enzymes (principal); Z90.49 Acquired absence of other specified parts of digestive tract
CPT/HCPCS: 76705

== ENCOUNTER 2023-02-07 06:00 | Outpatient (RCR) | payer OTHER, SELFPAY | END 2023-03-09 23:59 | disposition home or self-care (01) | LOC: MPT 06:00 | PROVIDERS: PCP Nurse Practitioner; Visit Provider Podiatrist Foot & Ankle Surgery | DX: M25.571 Pain in right ankle and joints of right foot (principal); M25.572 Pain in left ankle and joints of left foot | CPT/HCPCS: 97110; 97140; 97530 ==

== ENCOUNTER 2023-02-07 06:00 | Outpatient (RCR) | payer OTHER, SELFPAY | END 2023-03-09 23:59 | disposition home or self-care (01) | LOC: SPT 06:00 | PROVIDERS: PCP Nurse Practitioner; Visit Provider Nurse Practitioner | DX: N39.3 Stress incontinence (female) (male) (principal) | CPT/HCPCS: 97110; 97530 ==

== ENCOUNTER → 2023-03-02 13:55 | Outpatient (BNVA) | payer OTHER, SELFPAY | PROVIDERS: PCP Nurse Practitioner; Visit Provider Podiatrist Foot & Ankle Surgery | DX: M65.28 Calcific tendinitis, other site (principal); Z98.890 Other specified postprocedural states | CPT/HCPCS: 99024 ==

== ENCOUNTER 2023-03-10 06:00 | Outpatient (RCR) | payer OTHER, SELFPAY | END 2023-04-08 23:59 | disposition home or self-care (01) | LOC: SPT 06:00 | PROVIDERS: PCP Nurse Practitioner; Visit Provider Nurse Practitioner | DX: N39.3 Stress incontinence (female) (male) (principal); N94.10 Unspecified dyspareunia | CPT/HCPCS: 20560; 97110 ==

== ENCOUNTER 2023-03-10 06:00 | Outpatient (RCR) | payer OTHER, SELFPAY | END 2023-04-08 23:59 | disposition home or self-care (01) | LOC: MPT 06:00 | PROVIDERS: PCP Nurse Practitioner; Visit Provider Podiatrist Foot & Ankle Surgery | DX: M25.571 Pain in right ankle and joints of right foot (principal); M25.572 Pain in left ankle and joints of left foot | CPT/HCPCS: 97110; 97140; G0283 ==

== ENCOUNTER 2023-04-09 06:00 | Outpatient (RCR) | payer OTHER, SELFPAY | END 2023-05-09 23:59 | disposition home or self-care (01) | LOC: SPT 06:00 | PROVIDERS: PCP Nurse Practitioner; Visit Provider Nurse Practitioner | DX: N39.3 Stress incontinence (female) (male) (principal); N94.10 Unspecified dyspareunia | CPT/HCPCS: 20560; 97110; 97530 ==

== ENCOUNTER 2023-04-09 06:00 | Outpatient (RCR) | payer OTHER, SELFPAY | END 2023-05-09 23:59 | disposition home or self-care (01) | LOC: MPT 06:00 | PROVIDERS: PCP Nurse Practitioner; Visit Provider Podiatrist Foot & Ankle Surgery | DX: M25.571 Pain in right ankle and joints of right foot (principal); M25.572 Pain in left ankle and joints of left foot | CPT/HCPCS: 97110; 97140 ==

== ENCOUNTER 2023-05-10 06:00 | Outpatient (RCR) | payer OTHER, SELFPAY | END 2023-06-08 23:59 | disposition home or self-care (01) | LOC: MPT 06:00 | PROVIDERS: PCP Nurse Practitioner; Visit Provider Podiatrist Foot & Ankle Surgery | DX: M25.571 Pain in right ankle and joints of right foot (principal); M25.572 Pain in left ankle and joints of left foot | CPT/HCPCS: 97110; 97140; G0283 ==

== ENCOUNTER → 2023-06-12 13:03 | Outpatient (BNVA) | payer OTHER, SELFPAY | PROVIDERS: PCP Nurse Practitioner; Visit Provider Podiatrist Foot & Ankle Surgery | DX: M65.28 Calcific tendinitis, other site (principal); G57.61 Lesion of plantar nerve, right lower limb | CPT/HCPCS: 99213 ==

== ENCOUNTER → 2023-07-11 13:02 | Outpatient (BNVA) | payer OTHER, SELFPAY | PROVIDERS: PCP Nurse Practitioner; Visit Provider Podiatrist Foot & Ankle Surgery | DX: M79.672 Pain in left foot (principal); M65.262 Calcific tendinitis, left lower leg; G57.61 Lesion of plantar nerve, right lower limb; M65.261 Calcific tendinitis, right lower leg | CPT/HCPCS: 73630; 99214 ==

== ENCOUNTER 2023-07-21 07:53 | Day surgery (SDC) | payer OTHER, SELFPAY ==
[2023-07-21] VITALS (8 sets, daily range): BP systolic 105–162; BP diastolic 57–95; PULSE 62–77; RESP 16–20; TEMP 36.1–36.6; O2SAT 92–96
[2023-07-21] MEDS: sodium chloride 0.9% 1,000 ML 30 ML IV (08:16)
[2023-07-21] MEDS: CELEcoxib 200 mg Capsule 400 MG PO (08:16)
[2023-07-21] MEDS: gabapentin 300 mg Capsule PO (08:16)
[2023-07-21] MEDS: scopolamine 1.5 Patch 1 PATCH TRANSDERMA (08:18)
--- NOTE | 2023-07-21 09:45 | W.PM.OPSUD ---
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
[2023-07-21] MEDS: ceFAZolin 2,000 MG in sodium chloride 0.9% (plus) 50 ML 100 MG IV (10:10)
[2023-07-21] MEDS: BUPivacaine 0.5% INJ 30 mL XX (10:26)
[2023-07-21] MEDS: BUPivacaine liposome 13.3 mg/mL SDV 10 mL 133 MG INFILTRATI (10:26)
--- NOTE | 2023-07-21 10:42 | ANE.PACU2 ---
Inpatient post-anesthesia follow up: Vital signs: Temperature 97.8 F Pulse Rate 75 Respiratory Rate 16 Blood Pressure 162/95 Pulse Oximetry 96 Oxygen Delivery Me thod Room Air Oxygen Flow Rate Fraction of Inspir ed Oxygen Hydration adequate: Yes Nausea and vomiting: No Pain level: 1 Mental status: Baseline
--- NOTE | 2023-07-21 12:59 | ANE.PACU2 ---
Inpatient post-anesthesia follow up: Vital signs: Temperature 97.4 F Pulse Rate 62 Respiratory Rate 16 Blood Pressure 135/61 Pulse Oximetry 94 Oxygen Delivery Me thod Room Air Oxygen Flow Rate Fraction of Inspir ed Oxygen Hydration adequate: Yes Nausea and vomiting: No Pain level: 1 Mental status: Baseline
--- NOTE | 2023-07-21 14:03 | P.OP_ITS ---
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 CPT code 28576 2) platelet rich plasma injection left Achilles tendon. CPT code 09771 3) platelet rich plasma injection Grace's neuroma right foot third intermetatarsal space. 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 Planning on debridement with ablation and platelet rich plasma injection. Patient continues to have pain daily that is affecting her overall quality of life and is anticipating surgical intervention Friday, July 21, 2023. Has failed to respond to conservative treatments including custom orthotics, home stretching, night splint, oral and topical anti-inf lammatories and formal physical therapy I reviewed at length with the patient, the risks, potential complications, benefits, alternatives, expectations, and typical outcomes associated with the surgery. The risks and potential complications were explained in detail, including but not limited to infection, wound dehiscence or soft tissue complications, bleeding and hematoma, chronic edema, neuritis or nerve damage producing numbness or chronic pain, CRPS, failure to relieve pain or worsening pain, thick / painful / unsightly scar, limited motion / stiffness, malposition, delayed union, malunion, or nonunion, fracture, reaction to implants, anesthetic complications, venous thromboembolism, and deformity recurrence. I discussed the notion of no regrets with the patient as it pertains to complications and outcomes. The patient seemed to understand the nature of the proposed care and required convalescence. They asked appropriate questions, answered to their satisfaction. They are aware no guarantees can be made as to a satisfactory outcome and they understand there may be other possible unforeseen complications or outcomes not listed here that will be treated accordingly if they arise. There were no written or implied guarantees given to the patient. They gave informed consent to proceed. Planning on outpatient surgery 07/21/2023 Bilateral Achilles debridement and platelet rich plasma injection. Platelet rich plasma injection to the right third and metatarsal space. Procedure: Under mild sedation the patient was brought to the operating room and remained on the gurney in supine position. Timeout was performed. Anesthesia was administered by the anesthesia service. Local anesthesia injected by myself consisting of 30 cc of 0.5 to Marcaine plain in a V-block fashion at the posterior leg left and right followed by 10 cc of Exparel in a V-block fashion subcutaneously to the left and right posterior distal leg. Left and right lower extremities were exanguinated with an Esmarch bandage and left and right well- padded pneumatic calf tourniquets were inflated. Attention was directed to the right posterior heel at insertion of Achilles tendon which was noted to have thickening. Percutaneous incisions were performed along the course of the insertion of the right Achilles tendon followed by sharp debridement and micro Coblation through and through the Achilles tendon insertion in a grid like fashion. Right Achilles tendon was debrided of fibrosis and mucoid degeneration and devitalized tendon. The Achilles incisions were then flushed with sterile saline and dressed with an OpSite. Anesthesia per my request harvested 40 cc of blood from patient's upper peripheral which was then transferred to the Jr centrifuge following standard technique and spun for platelet rich plasma, total of 5 cc harvested this was injected of a quantity of 2.5 cc with dorsal approach at the right third and the tarsal space at the location of right third intertarsal neuroma with a 25-gauge needle and covered with an OpSite. Remaining 2.5 cc of platelet rich plasma was injected at the insertion of the left Achilles tendon and covered with an OpSite. Tourniquets were deflated and a prompt hyperemic response was noted to the distal digits of bilateral feet. Patient tolerated the procedure and anesthesia well and was transferred to the PACU with vital signs stable and vascular status intact. Following a period of postoperative monitoring she will be discharged home. May be weightbearing as tolerated below threshold of pain, is to rest and elevate both feet. Was given at home care instructions, scheduled follow-up and my cell phone number to contact me with any postoperative questions or concerns.
== END 2023-07-21 12:05 | disposition home or self-care (01) ==
PROVIDERS: PCP Nurse Practitioner; Visit Provider Podiatrist Foot & Ankle Surgery
PROC: (CPT 20551; principal; 2023-07-21 09:25)
DX: M65.28 Calcific tendinitis, other site (principal); M79.672 Pain in left foot; G57.61 Lesion of plantar nerve, right lower limb
CPT/HCPCS: 20551; 27654; 64455; C9290; J0690; J2250; J2704; J3010; J3490; J7030

== ENCOUNTER → 2023-08-10 13:42 | Outpatient (BNVA) | payer OTHER, SELFPAY | PROVIDERS: PCP Nurse Practitioner; Visit Provider Podiatrist Foot & Ankle Surgery | DX: Z98.890 Other specified postprocedural states (principal); M65.271 Calcific tendinitis, right ankle and foot | CPT/HCPCS: 99024 ==

== ENCOUNTER → 2023-11-09 10:12 | Outpatient (BNVA) | payer OTHER, SELFPAY | PROVIDERS: PCP Nurse Practitioner; Visit Provider Podiatrist Foot & Ankle Surgery | DX: Z98.890 Other specified postprocedural states (principal); M65.28 Calcific tendinitis, other site | CPT/HCPCS: 99213 ==

== ENCOUNTER → 2024-02-12 10:41 | Outpatient (BNVA) | payer OTHER, SELFPAY | PROVIDERS: PCP Nurse Practitioner; Visit Provider Podiatrist Foot & Ankle Surgery | DX: Z98.890 Other specified postprocedural states (principal); M65.28 Calcific tendinitis, other site | CPT/HCPCS: 99213 ==

== ENCOUNTER → 2024-08-19 09:36 | Outpatient (BNVA) | payer OTHER, SELFPAY | PROVIDERS: PCP Nurse Practitioner; Visit Provider Podiatrist Foot & Ankle Surgery | DX: Z98.890 Other specified postprocedural states (principal); M65.28 Calcific tendinitis, other site | CPT/HCPCS: 99213 ==

== ENCOUNTER → 2024-09-25 10:14 | Outpatient (BNVA) | payer OTHER, SELFPAY | PROVIDERS: PCP Nurse Practitioner; Visit Provider Specialist | DX: G56.01 Carpal tunnel syndrome, right upper limb (principal) | CPT/HCPCS: 73130; 99204 ==

== ENCOUNTER → 2024-11-28 10:13 | Outpatient (BNVA) | payer OTHER, SELFPAY | PROVIDERS: PCP Nurse Practitioner; Referring Provider Nurse Practitioner; Visit Provider Specialist | DX: G56.03 Carpal tunnel syndrome, bilateral upper limbs (principal) | CPT/HCPCS: 95911 ==

== ENCOUNTER → 2025-02-17 09:48 | Outpatient (BNVA) | payer OTHER, SELFPAY | PROVIDERS: PCP Nurse Practitioner; Visit Provider Podiatrist Foot & Ankle Surgery | DX: M76.61 Achilles tendinitis, right leg (principal); M76.62 Achilles tendinitis, left leg; Z98.890 Other specified postprocedural states | CPT/HCPCS: 99213 ==

== ENCOUNTER → 2025-04-02 09:49 | Outpatient (BNVA) | payer OTHER, SELFPAY | PROVIDERS: PCP Nurse Practitioner; Visit Provider Podiatrist Foot & Ankle Surgery | DX: M25.572 Pain in left ankle and joints of left foot (principal); M76.72 Peroneal tendinitis, left leg; M76.61 Achilles tendinitis, right leg; M76.62 Achilles tendinitis, left leg | CPT/HCPCS: 20550; 99213; J1100; J3301; J3490 ==

== ENCOUNTER → 2025-05-07 10:50 | Outpatient (BNVA) | payer OTHER, SELFPAY | PROVIDERS: PCP Nurse Practitioner; Visit Provider Podiatrist Foot & Ankle Surgery | DX: M76.61 Achilles tendinitis, right leg (principal); M76.62 Achilles tendinitis, left leg; M25.572 Pain in left ankle and joints of left foot; M76.72 Peroneal tendinitis, left leg | CPT/HCPCS: 99213 ==